=== PATIENT | male | born 1980 | race Caucasian/White ===

== ENCOUNTER 2018-05-29 11:05 | Outpatient (CLI) | payer BC ==
--- NOTE | 2018-05-29 11:56 | RAD ---
FOUR VIEWS LUMBAR SPINE: Technique: AP, lateral, flexion and extensive views of the lumbar spine. History: Back pain. FINDINGS: Images demonstrate five non-rib bearing lumbar vertebrae. No evidence of lumbar spine fractures, subl uxations, or bony lesions seen. Disc spaces are well maintained. No evidence of daiana or retrolisthe sis is seen. IMPRESSION: Normal four views lumbar spine. POS: C
== END 2018-05-29 11:06 | disposition home or self-care (01) ==
LOC: TBSIIMAG 11:05
PROVIDERS: ATTEND Neurological Surgery
DX: M54.5 Low back pain (principal)
CPT/HCPCS: 72110